=== PATIENT | male | born 1995 | race Caucasian/White ===

== ENCOUNTER 2018-10-27 21:52 | Emergency (ER) | payer MEDICAID, OTHER ==
[2018-10-27] MEDS ORDERED: Sodium Chloride 0.9% 10 ML Syringe FLUSH PRN (22:42)
[2018-10-27] MEDS ORDERED: Ondansetron 4 MG/2 ML SDV IVPUSH ONE (22:42)
[2018-10-27] MEDS ORDERED: Sodium Chloride 0.9% 1,000 ML IV ONE (22:42)
[2018-10-27] MEDS ORDERED: Ketorolac 30 MG/ML SDV IVPUSH ONE (22:42)
[2018-10-27] MEDS ORDERED: Sodium Chloride 0.9% 2.5 ML Syringe FLUSH PRN (22:42)
[2018-10-27] MEDS ORDERED: Albuterol/Ipratropium 3.0-0.5 MG/3 ML Neb Soln NEB ONE (22:42)
--- NOTE | 2018-10-27 22:49 | EDM.PDOC ---
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 Patient says that tonight his fever was 102 at home and he took 2 Excedrin as well as some DayQuil and he came into the ED because they were concerned about this fever being so high. The patient says that he started having nausea and vomiting today and has had 2 episodes of vomiting of food and cannot tolerate any solids but he can take sips of water. He denies any diarrhea and no abdominal pain. Patient said that he had pulmonary function tests in [place] at home with his doctor on Sunday of this past week and his results were better than prior indicating that he was not having a rejection. Patient said he had the cough at the time he did the PFTs and when he asked him about it they did not seem concerned. The patient is on chronic Zithromax, Bactrim and valacyclovir therapy as well as prednisone. Patient's significant other has an upper respiratory tract infection with cough and congestion as well as nasal drainage. The patient says that he just feels worn down and weak. Although the computer says he has a history of diabetes he said that after his lung transplant he was no longer a diabetic nor did he need any medications for that. The patient currently is afebrile at 100.3 and he denies any discomfort such as ear pain or throat pain head pain or sinus pain. He is not dizzy or lightheaded but has generalized weakness. 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 Patient did get his influenza shot Review of systems: As per history of present illness and below otherwise all systems reviewed and negative. Past medical history: As per history of present illness and as reviewed below otherwise noncontributory. Surgical history: As per history of present illness and as reviewed below otherwise noncontributory. Social history: No reported history of drug or alcohol abuse. Family history: As per history of present illness and as reviewed below otherwise noncontributory. Physical exam: General: Well-developed well-nourished thin man who is nontoxic and vital signs are noted by me. He speaks clearly in the ED without breathlessness but he does says some nasal quality to his voice HEENT: Atraumatic, normocephalic, pupils reactive, negative for conjunctival pallor or scleral icterus, mucous membranes moist, throat clear, neck supple, nontender, trachea midline. No cervical adenopathy or nuchal rigidity Lungs: Clear to auscultation with some diminished breath sounds throughout but no wheezing rales rhonchi work of breathing and no stridor, breath sounds equal bilaterally, chest nontender. Heart: S1S2, regular rhythm but tachycardic rate on my evaluation and no overt murmurs. Abdomen: Soft, nondistended, nontender. Negative for masses or hepatosplenomegaly. Slightly hypoactive bowel sounds. There is no evidence of any tenderness on palpation and no rebound or guarding. Pelvis: Deferred Genitourinary: Deferred. Rectal: Deferred. Extremities: Atraumatic, negative for cords or calf pain. Full range of motion without defects or deficits Neurovascular unremarkable. Neuro: Awake, alert, oriented. Cranial nerves II through XII unremarkable. Cerebellum unremarkable. Motor and sensory unremarkable throughout. Exam nonfocal. Diagnostics: CBC CMP lactic acid blood cultures influenza chest x-ray Therapeutics: IV fluids oxygen as needed Zofran duo neb Toradol Please note that the patient declined the Zofran and the Toradol that I offered ; he says that the Toradol may interact with his medications that he is on chronically so he does not take NSAIDs and the Zofran doesn't work for him and he has Reglan that he takes at home and took a dose at 9:30 PM Rocephin 0003: This case was discussed with the lung transplant physician container coordinator at the patient's Home transplant center, Doctor Ma; he does not feel that a CT scan is indicated at this time and he would like me to treat him with antibiotics as an early pneumonia. I will give him a dose of Rocephin here and send him out on Cefdnir which the doctor approved as a treatment choice. I will advise the patient to continue to follow-up with his transplant team with further complications and persistent fevers or new symptomatology. Impression: Persistent cough rule out early pneumonia, lung transplant stable Definitive disposition and diagnosis as appropriate pending reevaluation and review of above. chest Pain Score (Numeric/FACES): 4 - Related Data Allergies Allergy/AdvReac Type Severity Reaction Status Date / Time No Known Allergies Allergy Verified 10/23/16 00:29 Home Meds: Home Meds Azithromycin [Zithromax] 250 mg PO ASDIRECTED 10/27/18 [History] Lipase/Protease/Amylase [Zenpep DR 20,000 Unit] 3 each PO TIDMEALS 10/27/18 [ History] Metoclopramide HCl [Reglan] 0 mg PO TID 10/27/18 [History] Mycophenolate Mofetil [Cellcept] 250 mg PO BID 10/27/18 [History] Omeprazole 40 mg PO DAILY 10/27/18 [History] Sulfamethoxazole/Trimethoprim [Bactrim 400-80 MG] 1 tab PO ASDIRECTED 10/27/18 [ History] Tacrolimus 0.5 mg PO BID 10/27/18 [History] Voriconazole [Vfend] 0 mg PO Q12H 10/27/18 [History] predniSONE [Prednisone] 10 mg PO 10/27/18 [History] valACYclovir [Valtrex] 0 mg PO DAILY 10/27/18 [History] Past Medical History Cardiovascular History: Reports: None Respiratory History: Reports: Cystic Fibrosis Genitourinary History: Reports: None Musculoskeletal History: Reports: None Neurological History: Reports: None Psychiatric History: Reports: None Endocrine/Metabolic History: Reports: Other (See Below) Other Endocrine/Metabolic History: 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, pt reports no longer has diabete type I Hematologic History: Reports: None Dermatologic History: Reports: None - Infectious Disease History Infectious Disease History: Reports: None - Past Surgical History HEENT Surgical History: Reports: Naso-Sinus Surgery Respiratory Surgical History: Reports: Lung Biopsies, Other (See Below) Other Respiratory Surgeries/Procedures: lung transplant 04/13/17 GI Surgical History: Reports: Other (See Below) Other GI Surgeries/Procedures: prior GI tube Social & Family History - Tobacco Use Smoking Status *Q: Never Smoker - Recreational Drug Use Recreational Drug Use: No ED ROS GENERAL - Review of Systems Review Of Systems: ROS reveals no pertinent complaints other than HPI. ED EXAM, GENERAL - Physical Exam Exam: See Below (See dictation) Course - Vital Signs Last Recorded V/S: Last Vital Signs Temp 38.4 C H 10/27/18 23:23 Pulse 119 H 10/27/18 22:08 Resp 20 10/27/18 22:08 BP 119/72 10/27/18 22:08 Pulse Ox 99 10/27/18 22:45 - Orders/Labs/Meds Orders: Active Orders 24 hr Category Date Time Status Oxygen Therapy, ED [RC] ASDIRECTED Care 10/27/18 22:41 Active Pulse Oximetry [RC] ASDIRECTED Care 10/27/18 22:41 Active RT Aerosol Therapy [RC] ASDIRECTED Care 10/27/18 22:42 Active Chest 2V [CR] Stat Exams 10/27/18 22:41 Ordered CULTURE BLOOD [BC] Stat Lab 10/27/18 22:37 Received CULTURE BLOOD [BC] Stat Lab 10/27/18 22:51 Received Sodium Chloride 0.9% [Saline Flush] Med 10/27/18 22:42 Active 10 ml FLUSH ASDIRECTED PRN Sodium Chloride 0.9% [Saline Flush] Med 10/27/18 22:42 Active 2.5 ml FLUSH ASDIRECTED PRN cefTRIAXone [Rocephin in Dextrose,Iso-Osm 1 GM/50 ML] 1 Med 10/28/18 00:04 Active gm Premix Bag 1 bag IV ONETIME Blood Culture x2 Reflex Set [OM.PC] Stat Oth 10/27/18 22:42 Ordered Saline Lock Insert [OM.PC] Stat Oth 10/27/18 22:41 Ordered Medication Orders Ceftriaxone Sodium/Dextrose 1 (gm/ Premix) 50 mls @ 100 mls/hr IV ONETIME ONE Stop: 10/28/18 00:33 Sodium Chloride (Saline Flush) 10 ml FLUSH ASDIRECTED PRN PRN Reason: Keep Vein Open Sodium Chloride (Saline Flush) 2.5 ml FLUSH ASDIRECTED PRN PRN Reason: Keep Vein Open Labs: Laboratory Tests 10/27/18 10/27/18 10/27/18 Range/Units 22:37 22:37 22:37 WBC 9.97 (4.0-11.0) K/uL RBC 4.42 L (4.50-5.90) M/uL Hgb 12.7 L (13.0-17.0) g/dL Hct 36.3 L (38.0-50.0) % MCV 82.1 (80.0-98.0) fL MCH 28.7 (27.0-32.0) pg MCHC 35.0 (31.0-37.0) g/dL RDW Std Deviation 38.1 (28.0-62.0) fl RDW Coeff of Isaiah 13 (11.0-15.0) % Plt Count 325 (150-400) K/uL MPV 9.90 (7.40-12.00) fL Neut % (Auto) 66.9 (48.0-80.0) % Lymph % (Auto) 23.1 (16.0-40.0) % [place] % (Auto) 8.5 (0.0-15.0) % Eos % (Auto) 1.2 (0.0-7.0) % Baso % (Auto) 0.3 (0.0-1.5) % Neut # (Auto) 6.7 H (1.4-5.7) K/uL Lymph # (Auto) 2.3 (0.6-2.4) K/uL [place] # (Auto) 0.9 H (0.0-0.8) K/uL Eos # (Auto) 0.1 (0.0-0.7) K/uL Baso # (Auto) 0.0 (0.0-0.1) K/uL Nucleated RBC % 0.0 /100WBC Nucleated RBCs # 0 K/uL Lactate 2.0 (0.20-2.00) mmol/L Sodium 141 (136-148) mmol/L Potassium 4.1 (3.5-5.1) mmol/L Chloride 104 (98-107) mmol/L Carbon Dioxide 25.2 (21.0-32.0) mmol/L BUN 16 (7.0-18.0) mg/dL Creatinine 1.6 H (0.8-1.3) mg/dL Est Cr Clr Drug Dosing 47.63 mL/min Estimated GFR (MDRD) 54.3 ml/min Glucose 117 H (74-106) mg/dL Calcium 9.4 (8.5-10.1) mg/dL Total Bilirubin 0.4 (0.2-1.0) mg/dL AST 90 H (15-37) IU/L ALT 87 H (14-63) IU/L Alkaline Phosphatase 242 H (46-116) U/L Total Protein 8.4 H (6.4-8.2) g/dL Albumin 3.5 (3.4-5.0) g/dL Globulin 4.9 H (2.6-4.0) g/dL Albumin/Globulin Ratio 0.7 L (0.9-1.6) Meds: Medications Generic Name Dose Route Start Last Admin Trade Name Freq PRN Reason Stop Dose Admin Ceftriaxone Sodium/Dextrose 1 50 mls @ 100 mls/hr 10/28/18 00:04 gm/ Premix IV 10/28/18 00:33 ONETIME ONE Sodium Chloride 10 ml 10/27/18 22:42 Saline Flush FLUSH ASDIRECTED PRN Keep Vein Open Sodium Chloride 2.5 ml 10/27/18 22:42 Saline Flush FLUSH ASDIRECTED PRN Keep Vein Open Discontinued Medications Generic Name Dose Route Start Last Admin Trade Name Freq PRN Reason Stop Dose Admin Albuterol/Ipratropium 3 ml 10/27/18 22:42 10/27/18 22:56 Duoneb 3.0-0.5 Mg/3 Ml NEB 10/27/18 22:43 3 ml ONETIME ONE Administration Sodium Chloride 1,000 mls @ 999 mls/hr 10/27/18 22:42 10/27/18 22:54 Normal Saline IV 10/27/18 23:42 999 mls/hr STAT ONE Administration Ketorolac Tromethamine 30 mg 10/27/18 22:42 10/27/18 22:58 Toradol IVPUSH 10/27/18 22:43 Not Given ONETIME ONE Ondansetron HCl 4 mg 10/27/18 22:42 10/27/18 22:58 Zofran IVPUSH 10/27/18 22:43 Not Given ONETIME ONE Departure - Departure Time of Disposition: 00:08 Disposition: Home, Self-Care 01 Condition: Good Clinical Impression: Persistent cough, Lung transplant recipient Pneumonia Qualifiers: Pneumonia type: due to unspecified organism Laterality: right Lung location: unspecified part of lung Qualified Code(s): J18.9 - Pneumonia, unspecified organism - Discharge Information Referrals: PCP,None [Primary Care Provider] - Forms: ED Department Discharge Additional Instructions: The following information is given to patients seen in the emergency department who are being discharged to home. This information is to outline your options for follow-up care. We provide all patients seen in our emergency department with a follow-up referral. The need for follow-up, as well as the timing and circumstances, are variable depending upon the specifics of your emergency department visit. If you don't have a primary care physician on staff, we will provide you with a referral. We always advise you to contact your personal physician following an emergency department visit to inform them of the circumstance of the visit and for follow-up with them and/or the need for any referrals to a consulting specialist. The emergency department will also refer you to a specialist when appropriate. This referral assures that you have the opportunity for followup care with a specialist. All of these measure are taken in an effort to provide you with optimal care, which includes your followup. Under all circumstances we always encourage you to contact your private physician who remains a resource for coordinating your care. When calling for followup care, please make the office aware that this follow-up is from your recent emergency room visit. If for any reason you are refused follow-up, please contact the emergency department at and ask to speak to the emergency department charge nurse. [facility] [place] [address] Continue to treat your fever as usual with [id number] medications and push hydration. Please take antibiotics as directed. Please call and schedule a follow-up appointment with your signal tower operator in [place] or one of our doctors for local care. Please keep in touch with your transplant team about new symptoms or evolving symptoms as well as her progress with antibiotics. Return to ER as needed and as discussed - My Orders Last 24 Hours: My Active Orders 10/27/18 22:37 CULTURE BLOOD [BC] Stat 10/27/18 22:41 Oxygen Therapy, ED [RC] ASDIRECTED Pulse Oximetry [RC] ASDIRECTED Chest 2V [CR] Stat Saline Lock Insert [OM.PC] Stat 10/27/18 22:42 RT Aerosol Therapy [RC] ASDIRECTED Sodium Chloride 0.9% [Saline Flush] 10 ml FLUSH ASDIRECTED PRN Sodium Chloride 0.9% [Saline Flush] 2.5 ml FLUSH ASDIRECTED PRN Blood Culture x2 Reflex Set [OM.PC] Stat 10/27/18 22:51 CULTURE BLOOD [BC] Stat 10/28/18 00:04 cefTRIAXone [Rocephin in Dextrose,Iso-Osm 1 GM/50 ML] 1 gm Premix Bag 1 bag IV ONETIME - Assessment/Plan Last 24 Hours: My Active Orders 10/27/18 22:37 CULTURE BLOOD [BC] Stat 10/27/18 22:41 Oxygen Therapy, ED [RC] ASDIRECTED Pulse Oximetry [RC] ASDIRECTED Chest 2V [CR] Stat Saline Lock Insert [OM.PC] Stat 10/27/18 22:42 RT Aerosol Therapy [RC] ASDIRECTED Sodium Chloride 0.9% [Saline Flush] 10 ml FLUSH ASDIRECTED PRN Sodium Chloride 0.9% [Saline Flush] 2.5 ml FLUSH ASDIRECTED PRN Blood Culture x2 Reflex Set [OM.PC] Stat 10/27/18 22:51 CULTURE BLOOD [BC] Stat 10/28/18 00:04 cefTRIAXone [Rocephin in Dextrose,Iso-Osm 1 GM/50 ML] 1 gm Premix Bag 1 bag IV ONETIME
[2018-10-28] MEDS ORDERED: cefTRIAXone 1 GM in Premix Bag 1 BAG IV ONE (00:04)
[2018-10-28 01:12] VITALS: BP 108/66
--- NOTE | 2018-10-28 20:39 | CR ---
EXAM DATE: 10/27/18 PATIENT'S AGE: 22 Patient: ROBBIE SMITH Facility: [place], [place] Site . Site : 1995 Study: XRay Chest -10/27/2018 11:23:26 PM Ordering Physician: Nadiya Mcneal Final Report: INDICATION: Chest pain, shortness of breath, cough for 2 weeks. Patient has a history of lung transplant TECHNIQUE: Chest radiograph 2 views COMPARISON: None FINDINGS: Mediastinum: Patient status post median sternotomy noted with numerous surgical clips seen in the mediastinum from prior lung transplantation. The heart silhouette is normal in size and morphology. Lung: Volume loss in the right hemithorax is present with minimal tethering seen at the medial right lung base. Fine reticular interstitial opacities are present within the right apical region and right midlung zone. No sign of pleural effusion seen. No pneumothorax is identified. Musculoskeletal: Unremarkable for age. IMPRESSION: 1. Fine reticular interstitial opacities are present within the right apical region and right midlung zone. Assessment with chest CT may be helpful. Dictated by Zack Heredia MD @ 10/27/2018 11:27:02 PM Dictated by: Zack Heredia MD @ 10/27/2018 23:27:06 (Electronic Signature) Report Signed by Proxy. MARIA
== END 2018-10-28 01:06 | disposition home or self-care (01) ==
LOC: MW.ED 21:52
DX: R05 Cough (principal); E10.8 Type 1 diabetes mellitus with unspecified complications; Z94.2 Lung transplant status; Z79.899 Other long term (current) drug therapy; Z98.890 Other specified postprocedural states
CPT/HCPCS: 36415; 71046; 80053; 83605; 85025; 87040; 87804; 94640; 96361; 96365; 99284; J0696; J7040; J7620-GY

== ENCOUNTER 2019-04-14 17:06 | Emergency (ER) | payer OTHER ==
[2019-04-14] MEDS ORDERED: Albuterol/Ipratropium 3.0-0.5 MG/3 ML Neb Soln NEB ONE (17:33)
[2019-04-14] MEDS ORDERED: Sodium Chloride 0.9% 1,000 ML IV ONE (17:41)
--- NOTE | 2019-04-14 17:53 | EDM.PDOC ---
ED HPI GENERAL MEDICAL PROBLEM - General Chief Complaint: Respiratory Problem Stated Complaint: TROUBLE BREATHING Time Seen by Provider: 04/14/19 17:13 Source of Information: Reports: Patient History Limitations: Reports: No Limitations - History of Present Illness INITIAL COMMENTS - FREE TEXT/NARRATIVE: HISTORY AND PHYSICAL: History of present illness: Patient is a 23-year-old male presents to the ED today with concern of increasing shortness of breath over the past 2-3 days. 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 Patient states that he had had one episode of rejection right after the transplant and since then has had occasional infections that he has had to be treated with. He is currently on tobramycin which was given to him in the middle of March by a physician in [place]. Patient states he had been traveling with his girlfriend over the weekend and noticed increasing shortness of breath and states that he felt like he needed an inhaler today but does not have any. Patient states the transplant was done in [place]. Patient states he is taking his medications accordingly and routinely has his medication levels drawn and has never had an issue with the medications. Patient denies fever, chills, chest pain, shortness of breath, or cough. Denies headache, neck stiff ness, change in vision, syncope, or near syncope. Denies nausea, vomiting, abdominal pain, diarrhea, constipation, or dysuria. Has not noted any blood in urine or stool. Patient has been eating and drinking appropriately. Review of systems: As per history of present illness and below otherwise all systems reviewed and negative. Past medical history: As per history of present illness and as reviewed below otherwise noncontributory. Surgical history: As per history of present illness and as reviewed below otherwise noncontributory. Social history: See social history for further information Family history: As per history of present illness and as reviewed below otherwise noncontributory. Physical exam: General: Patient is alert, oriented, and in no acute distress. Patient sitting comfortably on exam table.Patient is speaking 3-4 words before having to take a deep breath but appears comfortable. HEENT: Atraumatic, normocephalic, pupils equal and reactive bilaterally, negative for conjunctival pallor or scleral icterus, mucous membranes moist, TMs normal bilaterally, throat clear, neck supple, nontender, trachea midline. No drooling or trismus noted. No meningeal signs. No hot potato voice noted. Lungs: Distant lung sounds but clear to auscultation, breath sounds equal bilaterally, chest nontender. Dry cough on exam. Heart: S1S2, regular rate and rhythm without overt murmur Abdomen: Thin, Soft, nondistended, nontender. Negative for masses or hepatosplenomegaly. Negative for costovertebral tenderness. Pelvis: Stable nontender. Genitourinary: Deferred. Rectal: Deferred. Skin: Intact, warm, dry. No lesions or rashes noted. Extremities: Atraumatic, negative for cords or calf pain. Neurovascular unremarkable. Neuro: Awake, alert, oriented. Cranial nerves II through XII unremarkable. Cerebellum unremarkable. Motor and sensory unremarkable throughout. Exam nonfocal. Notes: Dr. Price verbally involved in patient care. Patient did maintain adequate oxygenation throughout stay in ED. Upon arrival was about 93% on room air. Following DuoNeb has been around 97% consistently on room air. Patient does appear less short of breath following DuoNeb. Discussed the importance of admission to patient, but he declines admission at this time. He is accepting of all risks including and is adamant about not being admitted to the hospital. Patient states he fully understands the consequences of not being admitted and will return if he feels that this is necessary. Denies any further questions or concerns at this time. Diagnostics: CBC, CMP, UA, Ang Ct lung, lactate, blood cultures 2 Therapeutics: DuoNeb, oxygen Prescription: Prednisone, ProAir inhaler, Azithromycin, DuoNeb Impression: Dyspnea Bilateral ground glass opacities of the lungs Bronchiectasis Cystic fibrosis s/p lung transplant Immunocompromised Plan: 1. Increase your prednisone dose to 20mg daily for 5 days as prescribed. Then drop back down to your daily dose of 10mg. Take medications as prescribed. 2. Follow up with your transplant team as discussed. Return to the ED as needed and as discussed. Definitive disposition and diagnosis as appropriate pending reevaluation and review of above. - Related Data Allergies Allergy/AdvReac Type Severity Reaction Status Date / Time No Known Allergies Allergy Verified 10/23/16 00:29 Home Meds: Home Meds Lipase/Protease/Amylase [Zenpep DR 20,000 Unit] 3 each PO TIDMEALS 10/27/18 [ History] Metoclopramide HCl [Reglan] 0 mg PO TID 10/27/18 [History] Mycophenolate Mofetil [Cellcept] 250 mg PO BID 10/27/18 [History] Omeprazole 40 mg PO DAILY 10/27/18 [History] Sulfamethoxazole/Trimethoprim [Bactrim 400-80 MG] 1 tab PO ASDIRECTED 10/27/18 [ History] Tacrolimus 1 mg PO BEDTIME 10/27/18 [History] Voriconazole [Vfend] 200 mg PO Q12H 10/27/18 [History] Azithromycin [Zithromax] 250 mg PO ASDIRECTED 04/14/19 [History] Tacrolimus [Prograf] 2 mg PO DAILY 04/14/19 [History] Tobramycin/Nebulizer [Tobramycin Gigi 300 mg/5 ml] 1 dose NEB BID 04/14/19 [ History] valGANciclovir [Valcyte] 1 tab PO TID 04/14/19 [History] Past Medical History Cardiovascular History: Reports: None Respiratory History: Reports: Cystic Fibrosis Genitourinary History: Reports: None Musculoskeletal History: Reports: None Neurological History: Reports: None Psychiatric History: Reports: None Endocrine/Metabolic History: Reports: Other (See Below) Other Endocrine/Metabolic History: 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 ED EXAM, GENERAL - Physical Exam Exam: See Below (see dictation) Course - Vital Signs Last Recorded V/S: Last Vital Signs Temp 37.6 C 04/14/19 17:11 Pulse 122 H 04/14/19 17:11 Resp 22 H 04/14/19 17:11 BP 110/65 04/14/19 17:11 Pulse Ox 92 L 04/14/19 17:11 - Orders/Labs/Meds Orders: Active Orders 24 hr Category Date Time Status EKG Documentation Completion [RC] STAT Care 04/14/19 17:33 Active RT Aerosol Therapy [RC] ASDIRECTED Care 04/14/19 17:33 Active CULTURE BLOOD [BC] Stat Lab 04/14/19 17:48 Received CULTURE BLOOD [BC] Stat Lab 04/14/19 17:57 Received Blood Culture x2 Reflex Set [OM.PC] Stat Oth 04/14/19 17:40 Ordered Labs: Laboratory Tests 04/14/19 04/14/19 04/14/19 Range/Units 17:48 17:48 17:58 WBC 10.36 (4.0-11.0) K/uL RBC 4.64 (4.50-5.90) M/uL Hgb 14.1 (13.0-17.0) g/dL Hct 39.5 (38.0-50.0) % MCV 85.1 (80.0-98.0) fL MCH 30.4 (27.0-32.0) pg MCHC 35.7 (31.0-37.0) g/dL RDW Std Deviation 39.4 (28.0-62.0) fl RDW Coeff of Isaiah 13 (11.0-15.0) % Plt Count 362 (150-400) K/uL MPV 9.70 (7.40-12.00) fL Neut % (Auto) 72.3 (48.0-80.0) % Lymph % (Auto) 15.5 L (16.0-40.0) % [place] % (Auto) 5.9 (0.0-15.0) % Eos % (Auto) 5.7 (0.0-7.0) % Baso % (Auto) 0.6 (0.0-1.5) % Neut # (Auto) 7.5 H (1.4-5.7) K/uL Lymph # (Auto) 1.6 (0.6-2.4) K/uL [place] # (Auto) 0.6 (0.0-0.8) K/uL Eos # (Auto) 0.6 (0.0-0.7) K/uL Baso # (Auto) 0.1 (0.0-0.1) K/uL Nucleated RBC % 0.0 /100WBC Nucleated RBCs # 0 K/uL Lactate 1.3 (0.20-2.00) mmol/L Sodium 137 (136-148) mmol/L Potassium 4.1 (3.5-5.1) mmol/L Chloride 103 (98-107) mmol/L Carbon Dioxide 24.7 (21.0-32.0) mmol/L BUN 11 (7.0-18.0) mg/dL Creatinine 0.9 (0.8-1.3) mg/dL Est Cr Clr Drug Dosing 73.71 mL/min Estimated GFR (MDRD) > 60.0 ml/min Glucose 141 H (74-106) mg/dL Calcium 8.3 L (8.5-10.1) mg/dL Total Bilirubin 0.3 (0.2-1.0) mg/dL AST 22 (15-37) IU/L ALT 19 (14-63) IU/L Alkaline Phosphatase 106 (46-116) U/L Total Protein 7.3 (6.4-8.2) g/dL Albumin 3.2 L (3.4-5.0) g/dL Globulin 4.1 H (2.6-4.0) g/dL Albumin/Globulin Ratio 0.8 L (0.9-1.6) Urine Color Urine Appearance Urine pH (5.0-8.0) Ur Specific Moffit (1.001-1.035) Urine Protein (NEGATIVE) mg/dL Urine Glucose (UA) (NEGATIVE) mg/dL Urine Ketones (NEGATIVE) mg/dL Urine Occult Blood (NEGATIVE) Urine Nitrite (NEGATIVE) Urine Bilirubin (NEGATIVE) Urine Urobilinogen (<2.0) EU/dL Ur Leukocyte Esterase (NEGATIVE) 04/14/19 Range/Units 18:29 WBC (4.0-11.0) K/uL RBC (4.50-5.90) M/uL Hgb (13.0-17.0) g/dL Hct (38.0-50.0) % MCV (80.0-98.0) fL MCH (27.0-32.0) pg MCHC (31.0-37.0) g/dL RDW Std Deviation (28.0-62.0) fl RDW Coeff of Isaiah (11.0-15.0) % Plt Count (150-400) K/uL MPV (7.40-12.00) fL Neut % (Auto) (48.0-80.0) % Lymph % (Auto) (16.0-40.0) % [place] % (Auto) (0.0-15.0) % Eos % (Auto) (0.0-7.0) % Baso % (Auto) (0.0-1.5) % Neut # (Auto) (1.4-5.7) K/uL Lymph # (Auto) (0.6-2.4) K/uL [place] # (Auto) (0.0-0.8) K/uL Eos # (Auto) (0.0-0.7) K/uL Baso # (Auto) (0.0-0.1) K/uL Nucleated RBC % /100WBC Nucleated RBCs # K/uL Lactate (0.20-2.00) mmol/L Sodium (136-148) mmol/L Potassium (3.5-5.1) mmol/L Chloride (98-107) mmol/L Carbon Dioxide (21.0-32.0) mmol/L BUN (7.0-18.0) mg/dL Creatinine (0.8-1.3) mg/dL Est Cr Clr Drug Dosing mL/min Estimated GFR (MDRD) ml/min Glucose (74-106) mg/dL Calcium (8.5-10.1) mg/dL Total Bilirubin (0.2-1.0) mg/dL AST (15-37) IU/L ALT (14-63) IU/L Alkaline Phosphatase (46-116) U/L Total Protein (6.4-8.2) g/dL Albumin (3.4-5.0) g/dL Globulin (2.6-4.0) g/dL Albumin/Globulin Ratio (0.9-1.6) Urine Color YELLOW Urine Appearance CLEAR Urine pH 6.0 (5.0-8.0) Ur Specific Moffit 1.025 (1.001-1.035) Urine Protein NEGATIVE (NEGATIVE) mg/dL Urine Glucose (UA) NEGATIVE (NEGATIVE) mg/dL Urine Ketones NEGATIVE (NEGATIVE) mg/dL Urine Occult Blood NEGATIVE (NEGATIVE) Urine Nitrite NEGATIVE (NEGATIVE) Urine Bilirubin NEGATIVE (NEGATIVE) Urine Urobilinogen 0.2 (<2.0) EU/dL Ur Leukocyte Esterase NEGATIVE (NEGATIVE) Meds: Medications Discontinued Medications Generic Name Dose Route Start Last Admin Trade Name Gustavo PRN Reason Stop Dose Admin Albuterol/Ipratropium 3 ml 04/14/19 17:33 04/14/19 17:58 Duoneb 3.0-0.5 Mg/3 Ml NEB 04/14/19 17:34 3 ml ONETIME ONE Administration Sodium Chloride 1,000 mls @ 500 mls/hr 04/14/19 17:41 04/14/19 17:56 Normal Saline IV 04/14/19 19:40 500 mls/hr STAT ONE Administration Iopamidol 45 ml 04/14/19 19:11 04/14/19 19:12 Isovue Multipack-370 (76%) IVPUSH 04/14/19 19:12 45 ml ONETIME ONE Administration Departure - Departure Time of Disposition: 20:46 Disposition: Home, Self-Care 01 Clinical Impression: Ground glass opacity present on imaging of lung, Cystic fibrosis, Immunocompromised Dyspnea Qualifiers: Dyspnea type: unspecified Qualified Code(s): R06.00 - Dyspnea, unspecified Bronchiectasis Qualifiers: Bronchiectasis type: with acute exacerbation Qualified Code(s): J47.1 - Bronchiectasis with (acute) exacerbation - Discharge Information Referrals: PCP,None [Primary Care Provider] - Forms: ED Department Discharge Additional Instructions: The following information is given to patients seen in the emergency department who are being discharged to home. This information is to outline your options for follow-up care. We provide all patients seen in our emergency department with a follow-up referral. The need for follow-up, as well as the timing and circumstances, are variable depending upon the specifics of your emergency department visit. If you don't have a primary care physician on staff, we will provide you with a referral. We always advise you to contact your personal physician following an emergency department visit to inform them of the circumstance of the visit and for follow-up with them and/or the need for any referrals to a consulting specialist. The emergency department will also refer you to a specialist when appropriate. This referral assures that you have the opportunity for follow-up care with a specialist. All of these measure are taken in an effort to provide you with optimal care, which includes your follow-up. Under all circumstances we always encourage you to contact your private physician who remains a resource for coordinating your care. When calling for follow-up care, please make the office aware that this follow-up is from your recent emergency room visit. If for any reason you are refused follow-up, please contact the [facility] Emergency Department at and asked to speak to the emergency department charge nurse. [facility] [address] [place] [address] [facility] [address] [place] [address] 1. Increase your prednisone dose to 20mg daily for 5 days as prescribed. Then drop back down to your daily dose of 10mg. Take medications as prescribed. 2. Follow up with your transplant team / pulmonology as discussed. Return to the ED as needed and as discussed. - My Orders Last 24 Hours: My Active Orders 04/14/19 17:33 EKG Documentation Completion [RC] STAT RT Aerosol Therapy [RC] ASDIRECTED 04/14/19 17:40 Blood Culture x2 Reflex Set [OM.PC] Stat 04/14/19 17:48 CULTURE BLOOD [BC] Stat 04/14/19 17:57 CULTURE BLOOD [BC] Stat - Assessment/Plan Last 24 Hours: My Active Orders 04/14/19 17:33 EKG Documentation Completion [RC] STAT RT Aerosol Therapy [RC] ASDIRECTED 04/14/19 17:40 Blood Culture x2 Reflex Set [OM.PC] Stat 04/14/19 17:48 CULTURE BLOOD [BC] Stat 04/14/19 17:57 CULTURE BLOOD [BC] Stat
[2019-04-14 18:29] LABS: CHLORIDE,CL 103 mmol/L (98-107); SODIUM,NA 137 mmol/L (136-148)
[2019-04-14] MEDS ORDERED: Iopamidol 755 MG/ML 500 ML Multipack Bottle IVPUSH ONE (19:11)
--- NOTE | 2019-04-14 20:01 | CT ---
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 Shortness of breath with cough for 3 days. Technique: Multiple contiguous axial images were obtained from the thoracic inlet through the upper abdomen after the intravenous administration of 45 milliliters Isovue 370. Please note that all CT scans at this facility use dose modulation, iterative reconstruction, and/or weight-based dosing when appropriate to reduce radiation dose to as low as reasonably achievable. Comparison: None Findings: The heart is normal in size. No pericardial effusion is identified. The aorta is normal in caliber. There is no evidence of aortic dissection. No pulmonary embolism is identified. Postsurgical changes are identified in the aime bilaterally. No mediastinal, hilar, or axillary lymphadenopathy is identified. Bronchiectasis is identified in both lungs, greatest in the left lower lobe. Ground-glass opacities are identified in both upper lobes, greater on the right than the left. Emphysematous changes are identified in the apices. No pleural effusion or pneumothorax is identified. Nodular densities are identified in the right lower lobe, for instance on image number 61, series 10/15/2001, a 6 mm nodule is identified in the right lower lobe. Other smaller pulmonary nodules are identified. None of these are spiculated. The visualized portions of the liver, spleen, adrenals, and kidneys are normal. Median sternotomy wires are identified. No lytic or blastic lesions of the spine are seen. Impression: Postoperative changes identified in the bilateral aime, consistent with the patient`s known history of a bilateral lung transplant. Ground-glass opacities identified in both upper lobes. Emphysematous changes are identified in the apices. Nodular densities identified in the right lower lobe. Follow-up of these is warranted. Bronchiectasis bilaterally, greatest in the left lower lobe. No evidence of pulmonary embolism. Please note that all CT scans at this facility use dose modulation, iterative reconstruction, and/or weight-based dosing when appropriate to reduce radiation dose to as low as reasonably achievable. Dictated by Mariah Shukla MD @ Apr 14 2019 7:48PM Signed by Dr. Mariah Shukla @ Apr 14 2019 8:01PM
[2019-04-14 21:05] VITALS: BP 138/72
== END 2019-04-14 21:04 | disposition home or self-care (01) ==
LOC: MW.ED 17:06
DX: J47.1 Bronchiectasis with (acute) exacerbation (principal); E84.9 Cystic fibrosis, unspecified; Z79.899 Other long term (current) drug therapy
CPT/HCPCS: 36415; 71275; 80053; 81003; 83605; 85025; 87040; 96360; 99285; J7040; Q9967; J7620-GY